=== PATIENT | male | born 1955 | race Caucasian/White ===

== ENCOUNTER 2019-07-19 15:58 | Emergency (ER) | payer BC ==
[~2019-07-19] VITALS: Ht 185.4 cm; Wt 100.0 kg
[~2019-07-19 15:58] MED LIST: BAYER LOW81 MG OR; CLINDAMYCIN300 MG PO; CYMBALTA20 MG PO; FLUZONE SPLT1 M1 IM; LOTREL1 CA4 PO; LYRICA50 MG PO; METHOCARBAM500 MG PO; MULTI VIT PO; NABUMETONE500 MG PO; OXYCODO-APAP1 TA1 PO; OXYCODONE20 MG PO; PRILOSEC20 MG/CAP PO; TRIAMT/HCTZ1 TAB OR
[2019-07-19] MEDS ORDERED: KEFLEX500 MG PO (17:26)
[2019-07-19 17:40] VITALS: BP 226/127
== END 2019-07-19 17:48 | disposition home or self-care (01) | DRG 605 ==
LOC: ED 15:58
DX: S61.012A Laceration without foreign body of left thumb without damage to nail, initial encounter (principal); W31.2XXA Contact with powered woodworking and forming machines, initial encounter

== ENCOUNTER 2019-07-20 14:34 | Emergency (ER) | payer BC ==
[~2019-07-20] VITALS: Ht 185.4 cm; Wt 89.0 kg
[~2019-07-20 14:34] MED LIST changes: +KEFLEX500 MG PO
[2019-07-20 15:26] VITALS: BP 159/77
== END 2019-07-20 15:26 | disposition home or self-care (01) | DRG 605 ==
LOC: ED 14:34
DX: S61.012A Laceration without foreign body of left thumb without damage to nail, initial encounter (principal); Z48.00 Encounter for change or removal of nonsurgical wound dressing

== ENCOUNTER 2023-09-10 14:58 | Inpatient (IN) | payer MEDICARE ==
[~2023-09-10] VITALS: Ht 185.4 cm; Wt 99.0 kg
[2023-09-10] VITALS (31 sets, daily range): BP systolic 112–226; BP diastolic 58–110
[~2023-09-10 14:58] MED LIST changes: +LASIX 20 MG TAB20 MG PO; +LOSARTAN POTAS100 MG PO; +MS CONTIN30 MG PO; -OXYCODO-APAP1 TA1 PO; +OXYCODO-APAP1 TA2 PO; +PREDNISONE50 MG PO; +ZPAK PO
[2023-09-10 15:17] LABS: BASO% 0.1 % (0-3); HEMATOCRIT 44.4 % (39.0-50.0); HEMOGLOBIN 14.8 g/dl (14.0-18.0); IMMATURE GRANULOCYTES 0.3 % (0.0-5.0); LYMPH% 3.8 % (15-41); MEAN CELL VOLUME 87.4 fL CALC (80.0-100.0); MEAN CORPUSCULAR HGB 29.1 pG CALC (26.0-32.0); MEAN CORPUSCULAR HGB CONC 33.3 g/dL CAL (32.0-36.0); MONO% 2.6 % (2-13); NEUT# 14.31 thou/uL (1.82-7.42); NEUT% 93.2 % (42-76); RED BLOOD COUNT 5.08 mill/uL (4.70-6.10); RED CELL DISTRI WIDTH 13.8 % (11.5-15.5)
[2023-09-10 15:31] LABS: ALBUMIN 4.6 g/dL (3.2-5.0); ALKALINE PHOSPHATASE 103 u/l (38-126); ANION GAP 14 (6-22 (CALC)); BUN 26 mg/dL (8-23); BUN/CREATININE RATIO 23 (12-20 (CALC)); CARBON DIOXIDE 27 mmol/l (22-30); CHLORIDE 105 mmol/l (95-108); CREATININE 1.1 mg/dL (0.7-1.3); GFR FOR AFR.AMER. > 60 ML/MIN (>=60 (CALC)); GFR OTHER RACES > 60 ML/MIN (>=60 (CALC)); POTASSIUM 4.6 mmol/l (3.5-5.1); SGOT/AST 35 u/l (19-48); SODIUM 141 mmol/l (137-146); TOTAL PROTEIN 7.2 g/dL (6.3-8.2)
[2023-09-10 15:32] LABS: BILIRUBIN, TOTAL 0.4 mg/dL (0.2-1.3)
[2023-09-10] MEDS ORDERED: DILTIAZEM HYDR180 MG PO (16:29)
[2023-09-10] MEDS ORDERED: VENTOLIN HFA108 MCG (16:31)
[2023-09-11] VITALS (69 sets, daily range): BP systolic 94–237; BP diastolic 59–172
[2023-09-11 05:16] LABS: BASO% 0.1 % (0-3); HEMATOCRIT 42.8 % (39.0-50.0); HEMOGLOBIN 14.7 g/dl (14.0-18.0); IMMATURE GRANULOCYTES 0.5 % (0.0-5.0); LYMPH% 3.5 % (15-41); MEAN CELL VOLUME 87.5 fL CALC (80.0-100.0); MEAN CORPUSCULAR HGB 30.1 pG CALC (26.0-32.0); MEAN CORPUSCULAR HGB CONC 34.3 g/dL CAL (32.0-36.0); MONO% 1.2 % (2-13); NEUT# 11.48 thou/uL (1.82-7.42); NEUT% 94.7 % (42-76); RED BLOOD COUNT 4.89 mill/uL (4.70-6.10)
[2023-09-11 05:36] LABS: ANION GAP 16 (6-22 (CALC)); BUN 26 mg/dL (8-23); BUN/CREATININE RATIO 22 (12-20 (CALC)); CARBON DIOXIDE 26 mmol/l (22-30); CHLORIDE 105 mmol/l (95-108); CREATININE 1.2 mg/dL (0.7-1.3); GFR FOR AFR.AMER. > 60 ML/MIN (>=60 (CALC)); GFR OTHER RACES 60 ML/MIN (>=60 (CALC)); MAGNESIUM 2.2 mg/dL (1.6-2.3); POTASSIUM 4.5 mmol/l (3.5-5.1); SODIUM 141 mmol/l (137-146)
[2023-09-12] VITALS (32 sets, daily range): BP systolic 136–221; BP diastolic 61–93
[2023-09-12 05:10] LABS: BASO% 0.1 % (0-3); HEMATOCRIT 42.8 % (39.0-50.0); HEMOGLOBIN 14.3 g/dl (14.0-18.0); IMMATURE GRANULOCYTES 1.1 % (0.0-5.0); LYMPH% 2.5 % (15-41); MEAN CELL VOLUME 88.4 fL CALC (80.0-100.0); MEAN CORPUSCULAR HGB 29.5 pG CALC (26.0-32.0); MEAN CORPUSCULAR HGB CONC 33.4 g/dL CAL (32.0-36.0); MONO% 2.7 % (2-13); NEUT# 13.42 thou/uL (1.82-7.42); NEUT% 93.6 % (42-76); RED BLOOD COUNT 4.84 mill/uL (4.70-6.10); RED CELL DISTRI WIDTH 14.3 % (11.5-15.5)
[2023-09-12 05:31] LABS: ANION GAP 11 (6-22 (CALC)); BUN 36 mg/dL (8-23); BUN/CREATININE RATIO 33 (12-20 (CALC)); CARBON DIOXIDE 25 mmol/l (22-30); CHLORIDE 105 mmol/l (95-108); CREATININE 1.1 mg/dL (0.7-1.3); GFR FOR AFR.AMER. > 60 ML/MIN (>=60 (CALC)); GFR OTHER RACES > 60 ML/MIN (>=60 (CALC)); SODIUM 137 mmol/l (137-146)
[2023-09-13] VITALS (35 sets, daily range): BP systolic 128–229; BP diastolic 67–118
[2023-09-13 05:48] LABS: BASO% 0.1 % (0-3); HEMATOCRIT 43.7 % (39.0-50.0); HEMOGLOBIN 14.4 g/dl (14.0-18.0); IMMATURE GRANULOCYTES 2.1 % (0.0-5.0); LYMPH% 2.5 % (15-41); MEAN CELL VOLUME 88.8 fL CALC (80.0-100.0); MEAN CORPUSCULAR HGB 29.3 pG CALC (26.0-32.0); MONO% 3.1 % (2-13); NEUT# 11.99 thou/uL (1.82-7.42); NEUT% 92.2 % (42-76); RED BLOOD COUNT 4.92 mill/uL (4.70-6.10); RED CELL DISTRI WIDTH 14.3 % (11.5-15.5)
[2023-09-13 06:06] LABS: ANION GAP 10 (6-22 (CALC)); BUN 42 mg/dL (8-23); BUN/CREATININE RATIO 32 (12-20 (CALC)); CARBON DIOXIDE 27 mmol/l (22-30); CHLORIDE 104 mmol/l (95-108); CREATININE 1.3 mg/dL (0.7-1.3); GFR FOR AFR.AMER. > 60 ML/MIN (>=60 (CALC)); GFR OTHER RACES 55 ML/MIN (>=60 (CALC)); POTASSIUM 4.2 mmol/l (3.5-5.1); SODIUM 137 mmol/l (137-146)
[2023-09-14] VITALS (14 sets, daily range): BP systolic 146–269; BP diastolic 75–153
[2023-09-14 05:20] LABS: BASO% 0.1 % (0-3); HEMATOCRIT 42.7 % (39.0-50.0); HEMOGLOBIN 14.1 g/dl (14.0-18.0); IMMATURE GRANULOCYTES 2.9 % (0.0-5.0); LYMPH% 3.7 % (15-41); MEAN CELL VOLUME 88.6 fL CALC (80.0-100.0); MEAN CORPUSCULAR HGB 29.3 pG CALC (26.0-32.0); MONO% 3.2 % (2-13); NEUT# 9.51 thou/uL (1.82-7.42); NEUT% 90.1 % (42-76); RED BLOOD COUNT 4.82 mill/uL (4.70-6.10); RED CELL DISTRI WIDTH 13.9 % (11.5-15.5)
[2023-09-14 05:36] LABS: ANION GAP 10 (6-22 (CALC)); BUN 43 mg/dL (8-23); BUN/CREATININE RATIO 37 (12-20 (CALC)); CARBON DIOXIDE 27 mmol/l (22-30); CHLORIDE 105 mmol/l (95-108); CREATININE 1.2 mg/dL (0.7-1.3); GFR FOR AFR.AMER. > 60 ML/MIN (>=60 (CALC)); GFR OTHER RACES 60 ML/MIN (>=60 (CALC)); MAGNESIUM 2.4 mg/dL (1.6-2.3); POTASSIUM 4.1 mmol/l (3.5-5.1); SODIUM 138 mmol/l (137-146)
[2023-09-14] MEDS ORDERED: PREDNISONE50 MG PO (09:49)
[2023-09-14] MEDS ORDERED: LOPRESSOR 550 MG/TAB PO (09:50)
== END 2023-09-14 10:30 | disposition home or self-care (01) | DRG 305 ==
LOC: ED 14:58 → ED-I 16:13 → ED 16:50 → ICU 16:51
PROVIDERS: Family Medicine; ADMIT Student in an Organized Health Care Education/Training Program; ATTEND Student in an Organized Health Care Education/Training Program
DX: I16.0 Hypertensive urgency (principal); J44.1 Chronic obstructive pulmonary disease with (acute) exacerbation; I10 Essential (primary) hypertension; I48.91 Unspecified atrial fibrillation; J06.9 Acute upper respiratory infection, unspecified; F41.9 Anxiety disorder, unspecified; R45.1 Restlessness and agitation; F17.200 Nicotine dependence, unspecified, uncomplicated; Z91.148 Patient's other noncompliance with medication regimen for other reason; Z20.822 Contact with and (suspected) exposure to COVID-19
CPT/HCPCS: J1650